=== PATIENT | female | born 1955 | race Caucasian/White ===

== ENCOUNTER 2020-01-31 00:19 | Day surgery (SDC) | payer BC, SELFPAY ==
[2020-01-29 11:23] VITALS: BMI 34.3
--- NOTE | 2020-01-30 16:45 | WPDANESEPP ---
Anes - Eval Pre Procedure Procedure: Operation Date: 01/31/20 09:30 Proposed Procedures p Right Breast Modified Radical Mastectomy - Phil Avila MD Date/Time: 01/30/20 16:45 Pre Op Diagnosis: Right Breast Ca Patient Data Age: 64 Gender: F Height: 4 ft 11 in Weight: 77.11 kg Allergies Allergy/AdvReac Type Severity Reaction Status Date / Time clarithromycin AdvReac VOMITING, Verified 01/29/20 11:30 DIARRHEA tramadol AdvReac HALLUCINATI Verified 01/29/20 11:30 ONS Home Medications Medication Instructions Recorded Confirmed Type B-complex with vitamin C 1 tablet PO DAILY 12/09/19 01/29/20 History cholecalciferol (vitamin D3) 25 1,000 unit PO DAILY 12/09/19 01/29/20 History mcg (1,000 unit) capsule magnesium 250 mg tablet 250 mg PO DAILY 12/09/19 01/29/20 History multivitamin-iron 9 mg-folic acid 1 tablet PO DAILY 12/09/19 01/29/20 History 200 mcg-calcium and minerals tablet Patient hx anesthesia problems: none Family hx anesthesia problems: none PMFSH Past Medical History Medical History (Updated 01/30/20 @ 16:46 by Jake Poole CRNA) Breast cancer metastasized to axillary lymph node Breast mass Bronchitis Surgical History Surgical History History of tonsillectomy Family History Family History Father Esophageal cancer Mother Heart disease Diabetes mellitus Hypertension Sibling Diabetes mellitus Esophageal cancer Lung cancer Social History Social History Smoking status: Never smoker Second hand tobacco smoke exposure: No Alcohol intake: never Substance use: never Substance use type: does not use Gender identity (if verbalized by the patient): Female Exam Day of Procedure 01/30/20 16:45
--- NOTE | 2020-01-30 16:58 | PM.IMHP ---
H&P: HPI History of Present Illness Chief complaint: Right Breast Ca Narrative: Tessa Hilton is a 64 year old female whom I saw in the office initially on December 15. She had a 4 year history of a right breast mass that had gotten larger and developed ulceration. It it started about pea-sized and increased in size. She started to get a 2nd wound and thought she ought to have this evaluated. At that examination she was noted to have a grossly obvious large ulcerated right breast cancer. The ulcer was 5 x 7 cm. There was gross adenopathy in the right axilla. I did a needle core biopsy of the axillary mass. This showed metastatic breast cancer. She is otherwise healthy and is taken to surgery now for right modified radical mastectomy. She has not had mammogram or ultrasound due to the gross disease. Review of Systems Review of Systems: All systems reviewed & are unremarkable except as noted in HPI and below Constitutional: Constitutional: Denies headache(s) ENT: Denies headache(s) Cardiovascular: Cardiovascular: Denies chest pain and Denies dyspnea Respiratory: Respiratory: Denies cough and Denies dyspnea Gastrointestinal: Gastrointestinal: Denies bloating, Denies constipation and Denies nausea Neurologic: Denies confusion and Denies headache(s) Psychiatric: Psychiatric: Denies confusion PMFSH Past Medical History Medical History Breast cancer metastasized to axillary lymph node Breast mass Bronchitis Surgical History Surgical History History of tonsillectomy Family History Family History Father Esophageal cancer Mother Heart disease Diabetes mellitus Hypertension Sibling Diabetes mellitus Esophageal cancer Lung cancer Social History Social History Smoking status: Never smoker Second hand tobacco smoke exposure: No Alcohol intake: never Substance use: never Substance use type: does not use Gender identity (if verbalized by the patient): Female Meds Home Medications and Allergies Home Medications Medication Instructions Recorded Confirmed Type B-complex with vitamin C 1 tablet PO DAILY 12/09/19 01/31/20 History cholecalciferol (vitamin D3) 25 1,000 unit PO DAILY 12/09/19 01/31/20 History mcg (1,000 unit) capsule magnesium 250 mg tablet 250 mg PO DAILY 12/09/19 01/31/20 History multivitamin-iron 9 mg-folic acid 1 tablet PO DAILY 12/09/19 01/31/20 History 200 mcg-calcium and minerals tablet Allergies Allergy/AdvReac Type Severity Reaction Status Date / Time clarithromycin AdvReac VOMITING, Verified 01/29/20 11:30 DIARRHEA tramadol AdvReac HALLUCINATI Verified 01/29/20 11:30 ONS Exam Const: General: comfortable, no acute distress, alert and awake HENMT: Head: normocephalic and atraumatic Mouth: Yes Normal oral and palatal mucosa present Eyes: Conjunctivae: conjunctivae normal Pupils: Equal, round and reactive pupils present EOM: EOMs intact bilaterally Neck: Neck: normal visual inspection, no lymphadenopathy and nontender Chest: Breast/axilla inspection: abnormal inspection of the axilla ( Right axillary mass) and abnormal inspection of the breast ( Right breast with large ulcerated upper breast mass.) Breast/axilla palpation: abnormal palpation of the axilla ( right axillary mass biopsy proven to be metastatic breast cancer) and abnormal palpation of the breast ( large ulcerated firm hard upper breast mass) Other: left breast exam is negative left axilla is negative Resp: Effort & Inspection: normal respiratory effort Auscultation: clear to auscultation bilaterally Cardio: Rate: regular rate Rhythm: regular rhythm Heart sounds: no gallops, no murmurs and no rubs GI: Inspection: non-distended GI Palp: Yes Soft to palpa
[2020-01-31] VITALS (16 sets, daily range): BP systolic 97–146; BP diastolic 50–97; PULSE 69–88; RESP 10–20; TEMP 36–36.8; O2SAT 93–100
--- NOTE | 2020-01-31 07:57 | WPDANESEPPF ---
Anes - Initial Pre Proc Eval Procedure: Operation Date: 01/31/20 09:30 Proposed Procedures p Right Breast Modified Radical Mastectomy - Phil Avila MD Date/Time: 01/31/20 07:57 Surgeon: Phil Avila MD Pre Op Diagnosis: Right Breast Ca Patient Data Age: 64 Gender: F Height: 1.5 m Weight: 77.11 kg Allergies Allergy/AdvReac Type Severity Reaction Status Date / Time clarithromycin AdvReac VOMITING, Verified 01/29/20 11:30 DIARRHEA tramadol AdvReac HALLUCINATI Verified 01/29/20 11:30 ONS Home Medications Medication Instructions Recorded Confirmed Type B-complex with vitamin C 1 tablet PO DAILY 12/09/19 01/31/20 History cholecalciferol (vitamin D3) 25 1,000 unit PO DAILY 12/09/19 01/31/20 History mcg (1,000 unit) capsule magnesium 250 mg tablet 250 mg PO DAILY 12/09/19 01/31/20 History multivitamin-iron 9 mg-folic acid 1 tablet PO DAILY 12/09/19 01/31/20 History 200 mcg-calcium and minerals tablet Patient hx anesthesia problems: none Family hx anesthesia problems: none PMFSH Past Medical History Medical History Breast cancer metastasized to axillary lymph node Breast mass Bronchitis Surgical History Surgical History History of tonsillectomy Family History Family History Father Esophageal cancer Mother Heart disease Diabetes mellitus Hypertension Sibling Diabetes mellitus Esophageal cancer Lung cancer Social History Social History Smoking status: Never smoker Second hand tobacco smoke exposure: No Alcohol intake: never Substance use: never Substance use type: does not use Gender identity (if verbalized by the patient): Female Anes - Eval Final PreProcedure Day of Procedure 01/31/20 07:57 Patient weight: obese Heart: regular rate and rhythm Lungs: clear to auscultation and normal air movement Airway: Mallampati scale class II Neurological: alert and oriented Last oral intake: >/= 8 hours ASA classification: III Emergent: no Anesthetic plan: proceed Anesthesia type and monitoring: general LMA and ETT Informed Consent: The patient's anesthetic plan and its attendant risks and benefits were discussed with the patient/family/POA. Questions were solicited and answers provided to the satisfaction of the patient/family/POA.
[2020-01-31] MEDS: LACTATED RINGERS 1,000 ML 30 ML IV CONT ×2 (08:09→13:03)
--- NOTE | 2020-01-31 09:25 | WPDHPUPDATE1 ---
History and Physical Update Update Date/Time: 01/31/20 09:25 History and Physical has been reviewed, including an updated exam of the patient. There are NO changes in the patient's condition. Risks, benefits, and alternatives have been discussed and questions answered. Patient agrees to proceed with procedure.
[2020-01-31] MEDS: ceFAZolin 2 GM/D5W 50 ML 2 GM/50 ML BAG IVPB (09:33)
--- NOTE | 2020-01-31 10:28 | SUR.OPER ---
1 amp fentanyl checked out of pyxsis for this pt and given to dorita dinero at 1021
--- NOTE | 2020-01-31 10:49 | SUR.OPER ---
checked out 2 more amps fentanyl for this pt and given to dorita gardner heat pump installer 1048
--- NOTE | 2020-01-31 12:47 | SUR.OPER ---
EBL:150cc
--- NOTE | 2020-01-31 13:27 | PM.PROC ---
Procedure Note - Detailed Date of procedure: 01/31/20 Pre-op diagnosis: Right Breast Ca Locally advanced right breast cancer with clinically positive right axillary metastasis Post-op diagnosis: same Procedure performed: For right modified radical mastectomy Description of procedure: The patient was taken to surgery and induced into general anesthesia. The right breast was prepped and draped as was the right axilla and right arm. The right arm was mobile and prepped into the field. There was an ulcerating mass in the upper aspect of the right breast predominantly in the upper outer quadrant. A transversely oriented ellipse was drawn on the skin such that the entire ulcerated mass would be taken with the breast tissue. Approximately 2 cm margin of skin went with the ulcerated mass. After the ellipse was drawn on the skin, incision for the upper flap was made. Face-lift retractors were used and then the superior flap was created. Superior flap was dissected free from the breast tissue up to the right clavicle. Medially it was dissected over to the lateral border of the sternum. Laterally dissected to the lateral border the pectoralis major muscle. Then the 1st pastry assistant and I changed sides. Incision for the inferior flap was made. Face-lift retractors were again used and the inferior flap was created with the cautery. This was dissected down to the insertion of the rectus muscle. Medially this was divided over to the lateral border of the sternum. Laterally we dissected down until we found the superior margin of the latissimus Anderson muscle. Cautery was used for hemostasis. The 1st pastry assistant and I again changed places. Starting in the upper outer quadrant, the breast was removed from the pectoralis major muscle taking the pectoralis major fascia with the breast tissue. No progression of the tumor beyond the pectoralis major fascia was noted. The breast was continued to be removed from the chest wall below the pectoralis major muscle and on laterally over to the serratus anterior muscle. We then exposed the lateral border the pectoralis major muscle and started the right axillary dissection. Retraction of the pectoralis major was carried out and then dissection of the superficial fascia overlying the axillary content was divided. Lymphatic and vascular structures were clipped or cauterized. We then encountered the pectoralis minor muscle. This fascia was also divided so that we could proceed under the pectoralis minor. Careful dissection was carried out. Clamps and ties of 3 0 Vicryl were used for lymphatic and vascular structures. Clips and cautery were used as well. Slowly we dissected down and removed the axillary lymphatic tissue from beneath the pectoralis minor muscle constituting a level 2 dissection. Clinically palpable nodes were noted in the area. These were all taken with the specimen. I then went to the inferior and lateral aspects of the axilla and started dissection in these directions. This progressed up the latissimus Anderson muscle and down from the area just beneath the right axillary vein. The axillary vein was seen but we tried to keep the dissection inferior to that. We continued dissecting in a posterior direction again using clamps and ties of 3 0 Vicryl. Smaller lymphovascular structures were clipped or cauterized. Eventually we came to the thoracodorsal nerve, artery, and vein. These were carefully preserved. The long thoracic nerve was found and carefully preserved. We dissected the axillary tissue away from the thoracodorsal nerve artery and vein inferiorly. Continued dissection was carried out from the lateral apsect and also from the posterior aspect. Most of this was able to be done with the cautery. Finally, we freed the axillary tissue from the serratus anterior and latissimus Anderson muscle. The axillary contents and right breast were then completely freed. They were sent to pathology labeled right breast and axillary d
[2020-01-31] MEDS: KETOROLAC 30 MG/ML VIAL (*BKC) IV PUSH (14:00)
[2020-01-31] MEDS: ONDANSETRON INJ 4 MG/2 ML VIAL IV PUSH (14:01)
[2020-01-31] MEDS: HALOPERIDOL LACTATE 5 MG/ML VIAL 1 MG IV PUSH (14:57)
--- NOTE | 2020-01-31 15:06 | SUR.PHASEI ---
1500 SPOKE WITH PTS BROTHREYNALDO ADAMS PER PHONE- UPDATE & ROOM NUMBER GIVEN.
--- NOTE | 2020-01-31 15:20 | PC.NURSE ---
This patient, Tessa Hilton, was admitted to -. Patient/family oriented to hospital policies and general routines including ID bracelet, bed and alarms, visiting hours, pain management, procedures, bathroom and other care routines, personal items, smoking policy, room service/diet, and visiting hours. Valuables list has been completed. Information on how to activate the Rapid Response Team has been discussed. Patient/Family are encouraged to report perceived risks to care and to ask questions if they do not understand what they are told or what they should do.
[2020-01-31] MEDS: LACTATED RINGERS 1,000 ML 100 ML IV CONT (16:02)
[2020-01-31] MEDS: SENNA/DOCUSATE SODIUM TABLET 2 TAB PO (20:37)
[2020-01-31] MEDS: ENOXAPARIN 30 MG/0.3 ML SYRINGE SUB-Q (20:37)
[2020-02-01 02:00] VITALS: BP 110/49; PULSE 78; RESP 20; TEMP 36.7; O2SAT 97
[2020-02-01 06:00] VITALS: BP 108/56; PULSE 80; RESP 20; TEMP 36.9; O2SAT 97
[2020-02-01 07:09] LABS: Hematocrit 36.8 % (37.0-47.0); Hemoglobin 12.3 g/dL (12.0-15.0); Mean Corpuscular HGB Conc 33.4 g/dl (32-36); Mean Corpuscular Hemoglobin 30.4 pg (26-34); Mean Corpuscular Volume 91.1 fl (80-100); Mean Platelet Volume 10.7 fl (7.4-10.4); Platelet Count Result 253 k/mm3 (150-375); Red Blood Count 4.04 M/mm3 (4.2-5.4); Red Cell Distribution Width 12.3 % (11.5-14.5)
[2020-02-01 07:17] LABS: Blood Urea Nitrogen 18 mg/dL (7-17); Calcium 9.3 mg/dL (8.4-10.2); Carbon Dioxide 28 mmol/L (22-30); Chloride 101 mmol/L (98-107); Estimated Glomerular Filt Rate 56; Glucose 97 mg/dL (65-105); Potassium 4.1 mmol/L (3.4-5.0); Sodium 137 mmol/L (137-145)
[2020-02-01 10:00] VITALS: BP 110/57; PULSE 81; RESP 16; TEMP 36.7; O2SAT 100
[2020-02-01] MEDS: IBUPROFEN 400 MG TABLET PO (10:08)
[2020-02-01] MEDS: ENOXAPARIN 30 MG/0.3 ML SYRINGE SUB-Q (10:09)
[2020-02-01] MEDS: CHOLECALCIFEROL 1,000 UNIT TABLET 1000 UNITS PO (10:09)
[2020-02-01] MEDS: THERAPEUTIC MULTIVITAMINS/MINERALS TAB (*BKC) 1 TABLET PO (10:10)
[2020-02-01] MEDS: VITAMIN B COMPLEX/VIT C CAPSULE 1 EACH PO (10:10)
[2020-02-01 14:05] VITALS: BP 114/62; PULSE 98; RESP 18; TEMP 36.7; O2SAT 99
--- NOTE | 2020-02-01 14:50 | PM.DS ---
DS: Diagnosis Admitting Diagnosis Admitting Diagnosis: Malignant neoplasm of unspecified site of unspecified female breast Discharge Diagnosis (1) Breast cancer metastasized to axillary lymph node: Onset Date: Unknown Qualifiers: Laterality: right Qualified Code(s): C50.911 - Malignant neoplasm of unspecified site of right female breast; C77.3 - Secondary and unspecified malignant neoplasm of axilla and upper limb lymph nodes Code(s): C50.919 - Malignant neoplasm of unspecified site of unspecified female breast; C77.3 - Secondary and unspecified malignant neoplasm of axilla and upper limb lymph nodes Status: Chronic Assessment and Plan: Patient will follow postop discharge instructions. She will be followed up in the office in 1 week. DS: Summary Hospital Course Reason for hospitalization: Postop care after right-sided modified radical mastectomy Hospital Course: Patient uneventful hospital course. She stayed overnight after her modified radical mastectomy on the right. She had some nausea and pain the afternoon of the procedure. However, the following morning (this morning) she is doing well tolerated a diet last evening and today. She is very interested in going home. She is not requiring much pain medicine. She has good questions and she has been taught how to take care of her KAY drains. Status at Discharge Cognitive/behavioral status at discharge: [place] well back to baseline. Functional status at discharge: independent ambulation Overall status at discharge: patient is back to baseline Time Spent with Patient Time attestation: Total time spent providing and/or coordinating discharge services: Time spent: Less than 30 minutes Exam Narrative: Exam Narrative: Patient is doing well postop day 6 1. After right modified radical mastectomy. She is moving her right arm well but it is in a sling. KAY drains are draining serosanguineous fluid. She knows how to empty them. Lungs are clear No peripheral edema noted. Const: General: no acute distress DS: Data Data Completed and Pending Pending studies at discharge: Pending at discharge 01/31/20 11:16 Surgical [PTH] Routine Labs on day of discharge: Labs from last 24 hours 02/01/20 02/01/20 06:07 06:07 WBC 9.0 RBC 4.04 L Hgb 12.3 Hct 36.8 L MCV 91.1 MCH 30.4 MCHC 33.4 RDW 12.3 Plt Count 253 MPV 10.7 H Sodium 137 Potassium 4.1 Chloride 101 Carbon Dioxide 28 BUN 18 H Creatinine 1.00 Estim Creat Clear Calc Not Reportable Estimated GFR 56 L Glucose 97 Calcium 9.3 Discharge Plan Discharge Patient Disposition: Home, Self-Care Discharge Instructions: Discharge Instruction Sheet for Mastectomy/ Debary Node Biopsy (Possible Axillary Node Dissection) Patients Dr. Avila, Dr. Bethea, [facility] [address] [facility] [address] [place]. [address] 1.) Keep wound clean and dry. If drains are present, will need to sponge bathe until drain(s) are removed. This drain will be removed during your follow up visit. 2.) No vigorous activity or carrying with affected arm. May use arm to comb hair, eat, write, etc. 3.) Do not apply creams or ointments unless directed to do so by your surgeon. 4.) Ambulate (walk) for exercise at least 3 times per day. 5.) Contact your surgeon?s office if you have excessive and persistent pain, swelling, bleeding, or drainage through the dressing, redness or red streaks around the wound, heat or warmth at the site of the incision, or fever of more than 101 degrees. 6.) Resume all home medications. Patient to be given pain medication prescription prior to discharge if needed. 7.) Please be aware that the surgeon will likely inject a ?blue dye? to identify the sentinel lymph node during the procedure. This dye may turn your urine blue or green for 24 hours and skin a liya
== END 2020-02-01 15:50 | disposition home or self-care (01) ==
LOC: ANHSURGERY 07:56 → ANH3MEDSUR 15:36
PROVIDERS: PCP Family Medicine; Visit Provider Surgery
PROC: (CPT 19307; principal; 2020-01-31 09:30)
DX: C50.411 Malignant neoplasm of upper-outer quadrant of right female breast (principal); C77.3 Secondary and unspecified malignant neoplasm of axilla and upper limb lymph nodes; E66.9 Obesity, unspecified; Z68.34 Body mass index [BMI] 34.0-34.9, adult
CPT/HCPCS: 19307; 36415; 80048; 85027; 86850; 86900; 86901; 88307; 88309; 88342; A4565; A9270; C1713; J0690; J1100; J1630; J1650; J1885; J2001; J2250; J2370; J2405; J2704; J3010; J7120

== ENCOUNTER 2020-03-02 10:14 | Outpatient (CLI) | payer BC, SELFPAY ==
[2020-03-02 10:24] LABS: Basophils Percent Auto 0.4 % (0.2-1.2); Eosinophils Absolute Auto 0.3 K/mm3 (0-0.3); Eosinophils Percent Auto 5.5 % (0-4.4); Hematocrit 43.7 % (37.0-47.0); Hemoglobin 14.7 g/dL (12.0-15.0); Immature Granulocyte Absolute 0.01 K/mm3 (0.00-0.031); Immature Granulocyte Percent A 0.2 % (0-0.5); Lymphocytes Absolute Auto 1.32 K/mm3 (0.9-3.2); Lymphocytes Percent Auto 24.1 % (18.3-44.2); Mean Corpuscular HGB Conc 33.6 g/dl (32-36); Mean Corpuscular Hemoglobin 30.6 pg (26-34); Mean Corpuscular Volume 90.9 fl (80-100); Mean Platelet Volume 10.5 fl (7.4-10.4); Monocytes Absolute Auto 0.5 K/mm3 (0.1-0.6); Monocytes Percent Auto 9.5 % (2.6-8.5); Neutrophils Absolute Auto 3.3 K/mm3 (1.3-6.7); Neutrophils Percent Auto 60.3 % (45.5-73.1); Platelet Count Result 271 k/mm3 (150-375); Red Blood Count 4.81 M/mm3 (4.2-5.4); Red Cell Distribution Width 11.9 % (11.5-14.5); White Blood Count 5.5 K/mm3 (4.5-10.0)
[2020-03-02 13:41] LABS: Alanine Aminotransferase 36 U/L (4-35); Albumin Level 4.5 g/dL (3.5-5.1); Alkaline Phosphatase 90 U/L (38-126); Aspartate Amino Transferase 33 U/L (14-36); Bilirubin,Total 0.5 mg/dL (0.2-1.3); Blood Urea Nitrogen 20 mg/dL (7-17); Calcium 9.6 mg/dL (8.4-10.2); Carbon Dioxide 25 mmol/L (22-30); Chloride 105 mmol/L (98-107); Estimated Glomerular Filt Rate 56; Glucose 93 mg/dL (65-105); Potassium 4.7 mmol/L (3.4-5.0); Sodium 138 mmol/L (137-145)
[2020-03-05 06:44] LABS: CA 27.29 18 U/mL (<38)
== END 2020-03-02 10:15 | disposition home or self-care (01) ==
LOC: ANHLAB 10:15
PROVIDERS: PCP Family Medicine; Visit Provider Internal Medicine Hematology & Oncology
DX: C50.411 Malignant neoplasm of upper-outer quadrant of right female breast (principal); Z17.0 Estrogen receptor positive status [ER+]
CPT/HCPCS: 36415; 80053; 85025; 86300

== ENCOUNTER 2020-03-10 07:35 | Outpatient (CLI) | payer BC, SELFPAY ==
--- NOTE | ~2020-03-10 | MR_ITS ---
EXAMINATION: MR brain/brain stem wo/w con DATE: 03/10/2020 09:11 INDICATION: Malignant right breast cancer TECHNIQUE: Magnetic resonance imaging (MRI) of the brain and brainstem was performed without and with 15 mL Multihance intravenous contrast. Sequences included sagittal and axial T1-weighted SE, axial d iffusion-weighted FS SE, axial T2*-weighted GRE, axial T2-weighted FLAIR, and axial T2-weighted FSE. Postcontrast axial and coronal T1-weighted SE was obtained. Apparent diffusion coefficient (ADC) maps were created. COMPARISON: None. FINDINGS: There are no areas of restricted diffusion to suggest acute infarction. No intracranial hemorrhage or abnormal intracranial mass lesion. There are no intraparenchymal signal abnormalities seen on the ot her pulse sequences. The ventricles are symmetric and normal in size. There are no abnormal extra-axi al fluid collections. Flow voids are seen in the cerebral arteries on the T2-weighted sequences consi stent with their expected patency. Mucous retention cyst in the left maxillary sinus. Visualized orbi ts and soft tissues are unremarkable. There are no areas of abnormal enhancement on the post contrast images. IMPRESSION: 1. Normal brain. No evident metastatic disease or acute intracranial process. Reviewed, dictated and finalized at location A.
--- NOTE | ~2020-03-10 | MM_ITS ---
EXAMINATION: MM screening dianelys LT w nneka HISTORY: Screening mammogram. Malignant neoplasm of the right breast. TECHNIQUE: Craniocaudal and mediolateral oblique 3-D tomosynthesis images were obtained and synthetic 2-D images were generated. CAD analysis was submitted and interpreted. COMPARISON: No prior mammogram is available for comparison at this institution. BREAST PARENCHYMAL COMPOSITION: There are scattered areas of fibroglandular density. FINDINGS: There is a 2.3 cm mass in the upper outer quadrant of the left breast. There is an 8 mm mas s in the upper inner quadrant of the left breast posteriorly. There are benign calcifications. IMPRESSION: 1. Multiple left breast masses, largest measuring 2.3 cm in the upper outer quadrant. 2. Additional mammographic views and possible breast ultrasound are recommended. BI-RADS Category 0: Incomplete: Needs additional imaging evaluation. Reviewed, dictated and finalized at location A. IMPRESSION: 1. Multiple left breast masses, largest measuring 2.3 cm in the upper outer tabatha drant. 2. Additional mammographic views and possible breast ultrasound are recommended . BI-RADS Category 0: Incomplete: Needs additional imaging evaluation.
== END 2020-03-10 07:36 | disposition home or self-care (01) ==
PROVIDERS: PCP Family Medicine; Visit Provider Internal Medicine Hematology & Oncology
DX: C50.411 Malignant neoplasm of upper-outer quadrant of right female breast (principal); Z17.0 Estrogen receptor positive status [ER+]; Z12.31 Encounter for screening mammogram for malignant neoplasm of breast; R92.8 Other abnormal and inconclusive findings on diagnostic imaging of breast
CPT/HCPCS: 70553; 77063; 77067; A9577

== ENCOUNTER 2020-03-13 12:17 | Outpatient (CLI) | payer BC, SELFPAY ==
--- NOTE | ~2020-03-13 | CT_ITS ---
EXAMINATION: CT chest abdomen pelvis w con DATE: 03/13/2020 13:16 INDICATION: Malignant neoplasm of the upper outer quadrant of right breast. TECHNIQUE: Computed tomography (CT) of the chest, abdomen, and pelvis was performed with 100 mL Omnip aque 350 intravenous contrast. Automated exposure control and iterative reconstruction technique were employed. The dose-length product was 791.52 mGy-cm. COMPARISON: None FINDINGS: CHEST CT: There is mild scarring at the lung apices. There are greater than 20 scattered nodules in the lungs m easuring up to 12 mm. No pleural effusion. There is an 8 mm nodule in the thyroid, likely not clinica lly significant. There is an aberrant right subclavian artery. The heart size is normal. No pericardi al effusion. There are changes of right mastectomy. There are a few scattered masses at the skin in t he anterior and posterior thorax measuring up to 2.2 cm in left anterior upper chest. There is mild t horacic spondylosis. ABDOMEN/PELVIS CT: The liver, gallbladder, spleen, pancreas, adrenal glands, and kidneys are normal. There are multiple fibroids in uterus measuring up to 4.9 cm. There are no dilated loops of bowel. The appendix is dawson l. There are no pathologically enlarged lymph nodes. There is no free intraperitoneal fluid. There is mild lumbar spondylosis. IMPRESSION: 1. Pulmonary nodules, consistent with metastatic disease. 2. Multiple skin masses, which may be benign disease such as neurofibromatosis. Correlate with physic al exam. Reviewed, dictated and finalized at location A. IMPRESSION: 1. Pulmonary nodules, consistent with metastatic disease. 2. Multiple skin masses, which may be benign disease such as neurofibromatosis. Correlate with physical exam.
== END 2020-03-13 12:18 | disposition home or self-care (01) ==
LOC: ANHIMG 12:20
PROVIDERS: PCP Family Medicine; Visit Provider Internal Medicine Hematology & Oncology
DX: C50.411 Malignant neoplasm of upper-outer quadrant of right female breast (principal); Z17.0 Estrogen receptor positive status [ER+]; R91.8 Other nonspecific abnormal finding of lung field; R22.9 Localized swelling, mass and lump, unspecified
CPT/HCPCS: 71260; 74177; Q9967

== ENCOUNTER 2020-03-20 08:25 | Outpatient (CLI) | payer BC, SELFPAY ==
--- NOTE | ~2020-03-20 | MMUS_ITS ---
EXAMINATION: MM diagnostic mammo unilat LT, US breast LT complete HISTORY: Left breast masses on screening mammogram, history of right mastectomy TECHNIQUE: Additional 3-D tomosynthesis images of the left breast were performed and synthetic 2-D im ages were generated. CAD analysis was submitted and interpreted. High resolution limited left breast ultrasound was performed. COMPARISON: 03/10/2020 FINDINGS: MAMMOGRAPHIC FINDINGS: There are least three persistent left breast masses, two of which are visibly associated with the ski n. The third persistent mass is present in the upper inner breast and although not visible on the ski n, projects in the skin on the tomosynthesis images. No suspicious cystic or solid mass is identified . ULTRASOUND: There are hypoechoic masses of the left breast involving the skin corresponding to the mammographic f indings in question, all of which have the appearance of sebaceous cysts. No suspicious cystic or roldan id mass is identified. IMPRESSION: 1. Multiple sebaceous cysts of the left breast without mammographic or sonographic evidence of malign dary. 2. Recommend routine screening mammography in one year. BI-RADS Category 2: Benign finding(s). Reviewed, dictated and finalized at location A. IMPRESSION: 1. Multiple sebaceous cysts of the left breast without mammographic or sonograp hic evidence of malignancy. 2. Recommend routine screening mammography in one year. BI-RADS Category 2: Benign finding(s).
== END 2020-03-20 08:26 | disposition home or self-care (01) ==
LOC: ANHIMG 08:26
PROVIDERS: PCP Family Medicine; Visit Provider Surgery
DX: N60.82 Other benign mammary dysplasias of left breast (principal); Z90.11 Acquired absence of right breast and nipple
CPT/HCPCS: 76641; 77065

== ENCOUNTER 2020-03-24 09:27 | Outpatient (CLI) | payer BC, SELFPAY ==
--- NOTE | ~2020-03-24 | PE_ITS ---
EXAMINATION: PET skull to mid thigh DATE: 03/24/2020 11:34 INDICATION: Metastatic breast cancer, history of right mastectomy TECHNIQUE: Blood glucose level was 84 mg/dL. 8.375 mCi of 18-fluorodeoxyglucose (18-FDG) was administ ered i.v. Low dose computed tomography (CT) images were acquired from the base of the brain to the pr oximal thighs for attenuation correction and anatomic localization. Positron emission tomography (PET ) images were acquired in the same distribution beginning 62 minutes after injection. The dose-length product (DLP) was 724.71 mGy-cm. COMPARISON: CT, 03/13/2020 FINDINGS: Head/neck: FDG uptake in the oral cavity without suspicious CT correlate is likely physiologic. There is a polyp or mucous retention cyst in the left maxillary sinus. Chest: There are changes of right mastectomy and right axillary lymph node dissection. Again seen are greater than 20 pulmonary nodules in the lungs. The largest measures 12 mm in the right lower lobe a nd demonstrates abnormal FDG uptake with an SUV max of 3.4. FDG uptake is seen in the larger nodules with smaller nodules being too small for reliable FDG assessment. There are right subpectoral lymph n odes which are normal in size but demonstrate abnormal FDG uptake with an SUV max of 9.3. The heart s ize is normal. There is no pleural effusion or pneumothorax. There are multiple cutaneous nodules in the skin of the left breast which were demonstrated to be sebaceous cysts on recent ultrasound. Abdomen/pelvis/proximal thighs: No abnormal FDG uptake is identified. Physiologic FDG activity is pre sent in the bowel and urinary tract. The liver, spleen, pancreas, gallbladder, and adrenal glands are normal. The kidneys are unremarkable. There are multiple uterine fibroids which measure up to 4.9 cm . No pathologically enlarged abdominal or pelvic lymph nodes are identified. There is no free intrape ritoneal gas or evidence of bowel obstruction. Musculoskeletal: There is a subtle sclerotic lesion in the posterior aspect of the left ischium with abnormal FDG uptake and SUV max of 11.4. IMPRESSION: 1. Multiple pulmonary nodules, right subpectoral lymph nodes, and sclerotic lesion of the left ischiu m all with abnormal FDG uptake and consistent with metastatic disease. Reviewed, dictated and finalized at location A. IMPRESSION: 1. Multiple pulmonary nodules, right subpectoral lymph nodes, and sclerotic les ion of the left ischium all with abnormal FDG uptake and consistent with metast atic disease.
[2020-03-24 10:04] LABS: Glucose Point of Care 84 (65-105)
== END 2020-03-24 09:28 | disposition home or self-care (01) ==
PROVIDERS: PCP Family Medicine; Visit Provider Internal Medicine Hematology & Oncology
DX: C50.919 Malignant neoplasm of unspecified site of unspecified female breast (principal); R91.8 Other nonspecific abnormal finding of lung field; M89.8X8 Other specified disorders of bone, other site
CPT/HCPCS: 78815; A9552

== ENCOUNTER 2020-07-31 08:35 | Outpatient (CLI) | payer BC, SELFPAY ==
--- NOTE | ~2020-07-31 | NM_ITS ---
EXAMINATION: NM bone scan whole body DATE: 07/31/2020 13:05 INDICATION: Right breast cancer TECHNIQUE: 21 mCi Tc-99m HDP was administered intravenously. Delayed whole-body scintigrams were obt ained. COMPARISON: CT chest, abdomen and pelvis dated 07/31/2020 FINDINGS: Increased uptake at the left ischial/inferior pubic ramus with corresponding sclerotic bone lesion on CT which is also FDG avid on prior PET study consistent with metastatic disease. Additional small fo cus of increased uptake at the right side of the mandible likely related to dental disease with peria pical lucency at the posterior most right mandibular molar on prior PET/CT. Otherwise physiologic dis tribution of bone uptake with no other suspicious bone lesions identified. IMPRESSION: 1. Increased uptake at the right atrium/inferior pubic ramus corresponding to a sclerotic lesion on p rior CT consistent with metastatic disease. 2. Small focus of mild increased uptake at the right side of the mandible likely related to dental di sease. Reviewed, dictated and finalized at location B. IMPRESSION: 1. Increased uptake at the right atrium/inferior pubic ramus corresponding to a sclerotic lesion on prior CT consistent with metastatic disease. 2. Small focus of mild increased uptake at the right side of the mandible likel y related to dental disease.
--- NOTE | ~2020-07-31 | CT_ITS ---
EXAMINATION: CT chest abdomen pelvis w con DATE: 07/31/2020 15:20 CDT INDICATION: Breast cancer. Metastatic disease. TECHNIQUE: Computed tomography (CT) of the chest, abdomen, and pelvis was performed with 100 cc Omnip aque 350 intravenous contrast. The dose-length product was 943.28 mGy-cm. Automated exposure control and iterative reconstruction technique were employed. COMPARISON: CT dated 03/13/2020 FINDINGS: CHEST CT: Stable skin nodules located in the subcutaneous tissues left upper chest measuring up to 2.0 cm. Stat us post right mastectomy. No significant pleural or pericardial effusion. No thoracic lymphadenopathy . There is scarring and parenchymal: Consolidation of the right upper lobe, likely sequela of radiati on therapy. Infection less favored although not excluded. Correlate with radiation port site. Thoraci c aorta unremarkable without aneurysm or dissection. There is an aberrant right subclavian artery. He art size is normal. There is a 9 mm right lower lobe nodule, perifacial in the superior segment. This has diminished in size compared with prior examination when it measured 12 mm. There is a some solid 6 mm nodule right lower lobe, image 54, decreased compared with prior study when it measured 9 mm. T here is an additional subsolid nodule, image 56, also decreased in size. There has been decreased num steffen and size of all additional pulmonary nodules in both lungs, for instance in the left lower lobe, image 63, nodule measures 5 mm compared with 9 mm greatest axial dimension no endobronchial lesions. ABDOMEN/PELVIS CT: The liver, spleen, pancreas, adrenal glands and kidneys are unremarkable. Gallbladder is present. Mil d atherosclerosis without aneurysm. Enlarged fibroid uterus. Nonobstructive bowel gas pattern. No randa e air or free fluid. Mild lumbar spondylosis. Sclerotic lesion of the left ischium is compatible with metastatic disease. No other sites of sclerosis. IMPRESSION: 1. Improvement in number and size of bilateral pulmonary nodules, consistent with interval response t o therapy. Parenchymal consolidation/pleural thickening right apex, likely post radiation therapy simon nge. 2: Sclerosis left ischium, compatible with metastatic disease. 3: Space multiple skin masses unchanged. It is post right mastectomy. Reviewed, dictated and finalized at location A. IMPRESSION: 1. Improvement in number and size of bilateral pulmonary nodules, consistent wi th interval response to therapy. Parenchymal consolidation/pleural thickening r ight apex, likely post radiation therapy change. 2: Sclerosis left ischium, compatible with metastatic disease. 3: Space multiple skin masses unchanged. It is post right mastectomy.
== END 2020-07-31 08:36 | disposition home or self-care (01) ==
PROVIDERS: PCP Family Medicine; Visit Provider Internal Medicine Hematology & Oncology
DX: C50.411 Malignant neoplasm of upper-outer quadrant of right female breast (principal); Z17.0 Estrogen receptor positive status [ER+]
CPT/HCPCS: 36415; 71260; 74177; 78306; 80053; 85025; 86300; A9561; Q9967

== ENCOUNTER 2020-11-13 09:30 | Outpatient (CLI) | payer BC, SELFPAY ==
--- NOTE | ~2020-11-13 | NM_ITS ---
EXAMINATION: NM bone scan whole body DATE: 11/13/2020 13:49 INDICATION: Malignant neoplasm of the upper outer quadrant of the right breast. TECHNIQUE: 23.6 mCi Tc-99m HDP was administered intravenously. Delayed whole-body scintigrams were o btained. COMPARISON: Bone scan dated 07/31/[address] dated 11/13/[address] chest, abdomen and pelvis dated 07/31/2020 . FINDINGS: No interval change in a region of increased uptake at the left ischium corresponding to sclerotic bon e lesion on prior CT consistent with metastatic disease. No other suspicious bone lesions identified. Asymmetric diffuse increased uptake of the right ribs on the anterior projection likely due to prior right mastectomy with decreased soft tissue attenuation. IMPRESSION: 1. No change in a region of increased uptake at the right ischium corresponding to a sclerotic bone l esion on prior CT consistent with metastatic disease. No other evident metastatic disease. Reviewed, dictated and finalized at location A. E TOP TILE SETTER IMPRESSION: 1. No change in a region of increased uptake at the right ischium corresponding to a sclerotic bone lesion on prior CT consistent with metastatic disease. No other evident metastatic disease.
--- NOTE | ~2020-11-13 | CT_ITS ---
EXAMINATION: CT diagnostic chest w con DATE: 11/13/2020 10:18 INDICATION: Malignant neoplasm of the upper outer quadrant of the right breast TECHNIQUE: Transaxial computed tomographic images of the chest were obtained after the administration of 75 cc of Omnipaque 350 intravenous contrast. The dose-length product (DLP) was 266.84 mGy-cm. Ite rative reconstruction was used. COMPARISON: 07/31/2020 FINDINGS: There are surgical changes of right mastectomy. Areas of anterior subpleural fibrosis in th e right hemithorax are consistent with radiation change. There is also scarring in the right lung ape x. There are multiple lung nodules consistent with treated metastatic disease. No new pulmonary nodul e is identified. The lungs are free of focal airspace opacities. There is no pleural effusion or pneu mothorax. There is aberrant origin of the right subclavian artery which courses behind the esophagus. No pathologically enlarged thoracic lymph nodes are identified. The heart size is normal. IMPRESSION: 1. Multiple stable pulmonary nodules, consistent with treated metastatic disease. No new pulmonary no dules identified. Reviewed, dictated and finalized at location A. DEND CLERK IMPRESSION: 1. Multiple stable pulmonary nodules, consistent with treated metastatic diseas e. No new pulmonary nodules identified.
== END 2020-11-13 09:31 | disposition home or self-care (01) ==
PROVIDERS: PCP Family Medicine; Visit Provider Internal Medicine Hematology & Oncology
DX: C50.411 Malignant neoplasm of upper-outer quadrant of right female breast (principal); Z17.0 Estrogen receptor positive status [ER+]; R92.8 Other abnormal and inconclusive findings on diagnostic imaging of breast
CPT/HCPCS: 36415; 71260; 78306; 80053; 85025; 86300; A9561; Q9967

== ENCOUNTER 2021-03-02 09:01 | Outpatient (CLI) | payer BC, SELFPAY ==
--- NOTE | ~2021-03-02 | CT_ITS ---
EXAMINATION: CT diagnostic chest w con DATE: 03/02/2021 09:34 INDICATION: Breast cancer TECHNIQUE: Computed tomography (CT) of the chest was performed without intravenous contrast. Addition al 3D reconstructions utilizing coronal maximum intensity projection (MIP) were performed. Automated exposure control and iterative reconstruction technique were employed. The dose-length product was 25 6.00 mGy-cm. COMPARISON: 11/13/2020 07/31/2020 and FINDINGS: Status post right mastectomy. Fine subpleural reticulation consistent with radiation fibrosis along t he anterior right upper and middle lobes. Continued interval improvement in a region of additional li kiet radiation pneumonitis/fibrosis at the right apex. Continued decrease in size of multiple small p ulmonary nodules and intrafissural lymph nodes scattered throughout both lungs consistent with respon se to treatment of prior metastatic disease. No new or enlarging pulmonary nodules. Heart size is nor mal. No pericardial or pleural effusion. Small sliding-type hiatal hernia. Thoracic aorta is normal i n caliber with no dissection. Normal variant retroesophageal aberrant right subclavian artery. No pat hologically enlarged thoracic lymphadenopathy. Visualized upper abdomen is unremarkable. No interval change in several scattered sclerotic bone lesions the smaller and more dense lesions in the spine li kiet representing bone islands with more subtle lesions in the sternum and manubrium suspicious for m etastatic disease. IMPRESSION: 1. Continued interval decrease in size of multiple small pulmonary nodules and intrafissural lymph no denisha consistent with response to treatment of metastatic disease. No new or enlarging nodules identifi ed. 2. A few unchanged subtle sclerotic lesions in the manubrium and sternum suspicious for treated metas tatic disease. No new or enlarging liver lesions identified. Reviewed, dictated and finalized at location A. IMPRESSION: 1. Continued interval decrease in size of multiple small pulmonary nodules and intrafissural lymph nodes consistent with response to treatment of metastatic d isease. No new or enlarging nodules identified. 2. A few unchanged subtle sclerotic lesions in the manubrium and sternum suspic ious for treated metastatic disease. No new or enlarging liver lesions identifi ed.
--- NOTE | ~2021-03-02 | NM_ITS ---
EXAMINATION: NM bone scan whole body DATE: 03/02/2021 12:48 INDICATION: Breast cancer TECHNIQUE: 26.8 mCi Tc-99m HDP was administered intravenously. Delayed whole-body scintigrams were o btained. COMPARISON: Bone scan dated 11/13/[address] dated 03/02/2021 FINDINGS: Asymmetric decreased soft tissue attenuation of the right-sided rib activity due to a prior right mas tectomy. No interval change in a region of mild increased uptake at the left ischial corresponding to a sclerotic bone lesion on an earlier CT dated 07/31/2020 consistent with metastatic disease. No new foci of abnormal bone uptake to suggest progressive metastatic disease. Specifically no abnormal upt pablo identified at the sternum at the site of a few additional subtle sclerotic lesions on CT . IMPRESSION: 1. Unchanged region of increased uptake at the right ischium corresponding to a sclerotic bone lesion on an earlier CT consistent with metastatic disease. No other new foci of abnormal uptake to suggest progression of metastatic disease. Reviewed, dictated and finalized at location A.
[2021-03-02 09:31] LABS: Estimated Glomerular Filt Rate 38
== END 2021-03-02 09:02 | disposition home or self-care (01) ==
PROVIDERS: PCP Family Medicine; Visit Provider Internal Medicine Hematology & Oncology
DX: C50.411 Malignant neoplasm of upper-outer quadrant of right female breast (principal); Z17.0 Estrogen receptor positive status [ER+]; M89.9 Disorder of bone, unspecified; R91.8 Other nonspecific abnormal finding of lung field
CPT/HCPCS: 71260; 78306; A9561; Q9967

== ENCOUNTER 2021-06-21 08:08 | Outpatient (CLI) | payer BC, SELFPAY ==
--- NOTE | ~2021-06-21 | NM_ITS ---
EXAMINATION: NM bone scan whole body DATE: 06/21/2021 12:53 INDICATION: Right breast cancer TECHNIQUE: 25.9 mCi Tc-99m HDP was administered intravenously. Delayed whole-body scintigrams were o btained. COMPARISON: Chest CT dated 06/21/2021, bone scan dated 03/02/[address] abdomen and pelvis dated 2019 FINDINGS: Persistent region of mild increased uptake at the left ischial corresponding to sclerotic lesion on p rior CT . Otherwise physiologic distribution of bone and soft tissue uptake. No new bone lesions iden tified. Couple tiny foci of contamination external to the patient seen projecting over the soft tissu es at the anterior left pelvis on the initial images but not on subsequent imaging likely following r emoval of the contamination. IMPRESSION: 1. No change in a focus of increased uptake at the left ischium corresponding to a sclerotic lesion o n prior CT consistent with metastatic disease. No new bone lesions identified. Reviewed, dictated and finalized at location A. IMPRESSION: 1. No change in a focus of increased uptake at the left ischium corresponding t o a sclerotic lesion on prior CT consistent with metastatic disease. No new bon e lesions identified.
--- NOTE | ~2021-06-21 | CT_ITS ---
EXAMINATION: CT diagnostic chest w con EXAM DATE: 06/21/2021 08:58 INDICATION: Upper outer quadrant right breast cancer. TECHNIQUE: Spiral CT of the chest following intravenous injection of 75 mL Omnipaque 350. Axial, cor onal and sagittal images of the chest were reviewed. Coronal maximum intensity pixel images of chest reviewed. The dose-length product (DLP) for this examination was 189.58 mGy-cm. The exposure was t ailored according to patient size (auto mA exposure control), and iterative reconstruction (ASIR) was used as additional dose reduction technique. Comparison is made to prior examination from 03/02/2021. FINDINGS: Status post right-sided mastectomy. A there are some scattered pulmonary subcentimeter nod ules are unchanged. Correlating with prior history, these could be treated metastatic lesions. No new pulmonary nodules. Some right upper lobe scarring. There are no pleural or pericardial effusions. Tracheobronchial tree is patent. There is no mediastinal, hilar or axillary lymphadenopathy. The re is no pneumothorax. Heart normal in size. No evidence of coronary arterial calcification. Ther e is an aberrant right subclavian artery, a normal congenital variant. Right axillary lymph node diss ection. Upper abdomen is unremarkable. Subtle subtle regions of increased density in the manubrium and sternum are unchanged, possibly metastatic disease. Correlate with bone scan IMPRESSION: 1. Stable small pulmonary nodules could be treated metastatic disease. 2. Possible bone lesions unchanged. Reviewed, dictated and finalized at location B.
[2021-06-21 08:52] LABS: Estimated Glomerular Filt Rate 41
== END 2021-06-21 08:09 | disposition home or self-care (01) ==
PROVIDERS: PCP Family Medicine; Visit Provider Internal Medicine Hematology & Oncology
DX: C50.411 Malignant neoplasm of upper-outer quadrant of right female breast (principal); Z17.0 Estrogen receptor positive status [ER+]
CPT/HCPCS: 71260; 78306; A9561; Q9967

== ENCOUNTER 2021-10-13 08:28 | Outpatient (CLI) | payer BC, SELFPAY ==
--- NOTE | ~2021-10-13 | CT_ITS ---
EXAMINATION: CT diagnostic chest w con EXAM DATE: 10/13/2021 09:04 INDICATION: malignant neoplasm of upper outer quad of RT breast . TECHNIQUE: Spiral CT of the chest following intravenous injection of 75 mL Omnipaque 350. Axial, cor onal and sagittal images of the chest were reviewed. Coronal maximum intensity pixel images of chest reviewed. The dose-length product (DLP) for this examination was 195.38 mGy-cm. The exposure was t ailored according to patient size (auto mA exposure control), and iterative reconstruction (ASIR) was used as additional dose reduction technique. Comparison is made to prior examination from 06/21/2021. FINDINGS: Nodules of proteinaceous fluid or soft tissue density along the skin surface of the left br east superiorly, which could be directly visualized for clinical correlation. Surgical changes from r ight-sided mastectomy and lymph node dissection. There is an aberrant right subclavian artery, a marycruz enital variant. Right apical airspace disease is unchanged, scarring. Several small pulmonary nodules are unchanged, granulomas or treated metastatic disease. The lungs are otherwise clear. No central pulmonary emboli. There are no pleural or pericardial effu sions. Tracheobronchial tree is patent. There is no mediastinal, hilar or axillary lymphadenopath y. There is no pneumothorax. Heart normal in size. No evidence of coronary arterial calcificati on. Upper abdomen is unremarkable. Subtle small regions of increased sternal and manubrial density are also stable. IMPRESSION: 1. Stable exam. Reviewed, dictated and finalized at location A. GE ATTENDANT IMPRESSION: 1. Stable exam.
--- NOTE | ~2021-10-13 | NM_ITS ---
EXAMINATION: NM bone scan whole body DATE: 10/13/2021 12:35 INDICATION: Malignant neoplasm of upper outer quadrant of right breast. TECHNIQUE: 24.5 mCi Tc-99m HDP was administered intravenously. Delayed whole-body scintigrams were o btained. COMPARISON: Chest CT 10/13/2021, 06/21/2021, bone scan 06/21/2021, PET CT 03/24/2020 FINDINGS: There is increased activity in left ischial tuberosity. There are foci of increased activit y in the spine correlating with spondylosis by CT. IMPRESSION: 1. Unchanged distribution of increased activity involving left ischial tuberosity correlating with a sclerotic lesion by CT, consistent with metastatic disease. Reviewed, dictated and finalized at location B. SHER ACCORDION IMPRESSION: 1. Unchanged distribution of increased activity involving left ischial tuberosi ty correlating with a sclerotic lesion by CT, consistent with metastatic diseas e.
[2021-10-13 08:55] LABS: Estimated Glomerular Filt Rate 38
== END 2021-10-13 08:29 | disposition home or self-care (01) ==
LOC: ANHIMG 08:32
PROVIDERS: PCP Family Medicine; Visit Provider Internal Medicine Hematology & Oncology
DX: C50.411 Malignant neoplasm of upper-outer quadrant of right female breast (principal); Z17.0 Estrogen receptor positive status [ER+]
CPT/HCPCS: 71260; 78306; A9561; Q9967

== ENCOUNTER 2022-02-04 08:35 | Outpatient (CLI) | payer BC, SELFPAY ==
--- NOTE | ~2022-02-04 | CT_ITS ---
EXAMINATION: CT diagnostic chest w con DATE: 02/04/2022 09:09 INDICATION: History of breast cancer TECHNIQUE: Transaxial computed tomographic images of the chest were obtained after the administration of 75 cc of Omnipaque 350 intravenous contrast. The dose-length product (DLP) was 164.48 mGy-cm. Ite rative reconstruction was used. COMPARISON: 10/13/2021 FINDINGS: There are changes of right mastectomy. Multiple stable pulmonary nodules are identified. No new pulmonary nodules are seen. The lungs are free of acute opacities. There is no pleural effusion or pneumothorax. No pathologically enlarged thoracic lymph nodes are identified. The heart size is no rmal. Scarring is noted in the right lung apex. There is an aberrant origin of right subclavian arter y. IMPRESSION: 1. Multiple stable pulmonary nodules, consistent with treated metastatic disease. Reviewed, dictated and finalized at location B. IMPRESSION: 1. Multiple stable pulmonary nodules, consistent with treated metastatic diseas e.
[2022-02-04 09:02] LABS: Estimated Glomerular Filt Rate 35
== END 2022-02-04 08:36 | disposition home or self-care (01) ==
LOC: ANHIMG 08:38
PROVIDERS: PCP Family Medicine; Visit Provider Internal Medicine Hematology & Oncology
DX: C50.411 Malignant neoplasm of upper-outer quadrant of right female breast (principal); Z17.0 Estrogen receptor positive status [ER+]; R91.8 Other nonspecific abnormal finding of lung field
CPT/HCPCS: 71260; Q9967

== ENCOUNTER 2022-02-09 10:34 | Outpatient (CLI) | payer BC, SELFPAY ==
--- NOTE | ~2022-02-09 | NM_ITS ---
NM bone scan whole body DATE: 02/09/2022 13:56 INDICATION: Right breast malignancy TECHNIQUE: Routine anterior and posterior whole body delayed images after intravenous administration of 25.1 mCi 99m technetium MDP COMPARISON: 10/13/2021 radionuclide bone scan FINDINGS: Again noted is a focus of increased uptake at the left ischial tuberosity which appears sta ble since 10/13/2021. No new area of abnormal increased uptake of the axial or appendicular skeleton is identified. Bilateral renal activity. IMPRESSION: No change since 10/13/2021 cm of persistent focus of increased uptake at left ischial tube rosity corresponding to reported sclerotic CT lesion, consistent with metastatic disease Reviewed, dictated and finalized at Location A. Reviewed, dictated and finalized at location B. IMPRESSION: No change since 10/13/2021 cm of persistent focus of increased uptak e at left ischial tuberosity corresponding to reported sclerotic CT lesion, con sistent with metastatic disease
== END 2022-02-09 10:35 | disposition home or self-care (01) ==
PROVIDERS: PCP Family Medicine; Visit Provider Internal Medicine Hematology & Oncology
DX: C50.411 Malignant neoplasm of upper-outer quadrant of right female breast (principal); Z17.0 Estrogen receptor positive status [ER+]
CPT/HCPCS: 78306; A9561

== ENCOUNTER 2022-05-26 08:38 | Outpatient (CLI) | payer BC, SELFPAY ==
--- NOTE | ~2022-05-26 | CT_ITS ---
EXAMINATION: CT diagnostic chest w con DATE: 05/26/2022 09:04 INDICATION: Malignant neoplasm of the upper outer quadrant of the right breast TECHNIQUE: Transaxial computed tomographic images of the chest were obtained after the administration of 75 cc of Omnipaque 350 intravenous contrast. The dose-length product (DLP) was 143.57 mGy-cm. Ite rative reconstruction was used. COMPARISON: 02/04/2022 FINDINGS: Again seen are multiple stable pulmonary nodules. No new pulmonary nodules are identified. There are changes of right mastectomy and right axillary lymph node dissection. Scarring is present i n the right lung apex. No pathologically enlarged thoracic lymph nodes are identified. The heart size is normal. Aberrant origin of the right subclavian artery is again noted. A probable sebaceous cyst in the upper outer quadrant of the left breast appears to have decreased in size. There is moderate t horacic spondylosis. IMPRESSION: 1. Multiple stable pulmonary nodules, consistent with treated metastatic disease. Reviewed, dictated and finalized at location B. IMPRESSION: 1. Multiple stable pulmonary nodules, consistent with treated metastatic diseas e.
--- NOTE | ~2022-05-26 | NM_ITS ---
EXAMINATION: NM bone scan whole body DATE: 05/26/2022 12:25 INDICATION: Malignant neoplasm of upper outer quadrant of right breast. TECHNIQUE: 25.0 mCi Tc-99m HDP was administered intravenously. Delayed whole-body scintigrams were o btained. COMPARISON: Chest CT 05/26/2022, bone scan 02/09/2022, CT abdomen and pelvis 07/31/2020 FINDINGS: There is increased activity in the left ischium correlating with a sclerotic lesion by CT, consistent with metastatic disease. There are foci of increased activity in the right foot and ankle without radiographic comparison, likely osteoarthritis. IMPRESSION: 1. Unchanged distribution of increased activity in the left ischium correlating with a sclerotic lesi on by CT, consistent with metastatic disease. Reviewed, dictated and finalized at location A. IMPRESSION: 1. Unchanged distribution of increased activity in the left ischium correlating with a sclerotic lesion by CT, consistent with metastatic disease.
[2022-05-26 09:00] LABS: Estimated Glomerular Filt Rate 41
== END 2022-05-26 08:39 | disposition home or self-care (01) ==
PROVIDERS: PCP Family Medicine; Visit Provider Internal Medicine Hematology & Oncology
DX: C50.411 Malignant neoplasm of upper-outer quadrant of right female breast (principal); Z17.0 Estrogen receptor positive status [ER+]; R91.8 Other nonspecific abnormal finding of lung field; M89.9 Disorder of bone, unspecified
CPT/HCPCS: 36415; 71260; 78306; 80053; 85025; 86300; A9561; Q9967

== ENCOUNTER 2022-11-10 08:38 | Outpatient (CLI) | payer MEDICARE, OTHER, SELFPAY ==
--- NOTE | ~2022-11-10 | NM_ITS ---
EXAMINATION: NM bone scan whole body DATE: 11/10/2022 13:57 INDICATION: Right breast cancer TECHNIQUE: 24.2 mCi Tc-99m HDP was administered intravenously. Delayed whole-body scintigrams were o btained. COMPARISON: Bone scan dated 05/26/[address] dated 11/10/2022 FINDINGS: Increased uptake at the right lateral malleolus corresponding to a nondisplaced fracture on radiograp h dated 06/03/2022. The additional small foci of increased uptake at the medial right ankle and right m idfoot have resolved also likely posttraumatic in etiology. Residual mild increased uptake at the lef t ischium corresponding to FDG avid sclerotic bone lesion on PET CT dated consistent with meta static disease. No other suspicious foci of abnormal bone uptake. There is asymmetric increased activ ity anterior right ribs relative to the left resulting from decreased soft tissue attenuation related to a prior right mastectomy. IMPRESSION: 1. Unchanged asymmetric mild increased uptake at the right ischium corresponding to chronic metastati c disease. No new lesions suspicious for additional osseous metastases. 2. Small focus of mild uptake at the right lateral malleolus corresponding to a now chronic nondispla jean-pierre avulsion fracture the tip of the malleolus. Reviewed, dictated and finalized at location A. FERMENTER IMPRESSION: 1. Unchanged asymmetric mild increased uptake at the right ischium correspondin g to chronic metastatic disease. No new lesions suspicious for additional osseo us metastases. 2. Small focus of mild uptake at the right lateral malleolus corresponding to a now chronic nondisplaced avulsion fracture the tip of the malleolus.
--- NOTE | ~2022-11-10 | CT_ITS ---
Clinical Indication: Breast cancer CT Scan of the Chest with Contrast: Technique: Contiguous sections were acquired throughout the chest after intravenous administration of 75 cc of Omnipaque 350. Dose reduction technique was used on this scan by utilizing automated exposu re control and iterative reconstruction technique. The dose-length product (DLP) was 147.48 mGy-cm. COMPARISON: 05/26/2022 Findings: There is no evidence of any significant mediastinal, hilar or axillary lymphadenopathy. There is no f illing defect in the pulmonary arterial tree to suggest pulmonary embolus. There is no evidence of ao rtic dissection or aneurysm. Aberrant right subclavian artery is incidentally noted. Patient is statu s post right mastectomy. There is no evidence of pleural or pericardial effusion. There is probable mild post radiation changes in the right upper lobe. No suspicious pulmonary nodule or consolidation seen otherwise. Left lung is clear. Images through the upper abdomen reveal no abnormalities. Impression: No evidence for active malignancy or metastatic disease. Mild post radiation change in the right upper lobe is similar to prior exam. Status post right mastectomy. Reviewed, dictated and finalized at location . D SERVICE ENGINEER Impression: No evidence for active malignancy or metastatic disease. Mild post radiation change in the right upper lobe is similar to prior exam. Status post right mastectomy.
[2022-11-10 09:31] LABS: Estimated Glomerular Filt Rate 38
== END 2022-11-10 08:39 | disposition home or self-care (01) ==
PROVIDERS: PCP Family Medicine; Visit Provider Internal Medicine Hematology & Oncology
DX: C50.411 Malignant neoplasm of upper-outer quadrant of right female breast (principal); Z17.0 Estrogen receptor positive status [ER+]; C50.919 Malignant neoplasm of unspecified site of unspecified female breast; C78.00 Secondary malignant neoplasm of unspecified lung; C79.51 Secondary malignant neoplasm of bone; Z90.11 Acquired absence of right breast and nipple
CPT/HCPCS: 71260; 78306; A9503; Q9967

== ENCOUNTER 2023-04-24 08:04 | Outpatient (CLI) | payer MEDICARE, OTHER, SELFPAY ==
--- NOTE | ~2023-04-24 | CT_ITS ---
Clinical Indication: Breast cancer CT Scan of the Chest with Contrast: Technique: Contiguous sections were acquired throughout the chest after intravenous administration of 75 cc of Omnipaque 350. Dose reduction technique was used on this scan by utilizing automated exposu re control and iterative reconstruction technique. The dose-length product (DLP) was 165.77 mGy-cm. COMPARISON: 11/10/2022 Findings: There is no evidence of any significant mediastinal, hilar or axillary lymphadenopathy. There is no f illing defect in the pulmonary arterial tree to suggest pulmonary embolus. There is no evidence of ao rtic dissection or aneurysm. Aberrant right subclavian artery noted. There is no evidence of pleural or pericardial effusion. Stable probable postradiation change or scarring at the right lung apex. No suspicious pulmonary nodu le identified. Images through the upper abdomen reveal no abnormalities. Patient is status post right mastectomy. St able subcutaneous mass noted at the upper, anterior left chest region. Impression: No evidence for active malignancy or metastatic disease. Status post right mastectomy. Stable postradiation change or scarring at the right lung apex. Stable subcutaneous mass at the upper, anterior left chest region, presumably sebaceous cyst. Reviewed, dictated and finalized at location . Impression: No evidence for active malignancy or metastatic disease. Status post right mastectomy. Stable postradiation change or scarring at the [facility] lung apex. Stable subcutaneous mass at the upper, anterior left chest region, presumably s ebaceous cyst.
--- NOTE | ~2023-04-24 | NM_ITS ---
Whole-body bone scan: History: Breast cancer. COMPARISON: 11/10/2022 Radiopharmaceutical: 23.3 mCi of technetium 99m MDP was administered intravenously. Procedure: Three hour delayed anterior and posterior whole-body bone scan was performed. Findings: Subtle increased uptake at the left ischium is unchanged. Tiny focus of very subtle uptake at the right lateral malleolus region is also unchanged. Remaining uptake appears physiologic in dist ribution. Impression: Stable area of increased uptake at the left ischium, consistent with chronic metastatic disease. Tiny focus of increased uptake at the right lateral malleolus, compatible with posttraumatic uptake. Reviewed, dictated and finalized at location . Impression: Stable area of increased uptake at the left ischium, consistent with chronic me tastatic disease. Tiny focus of increased uptake at the right lateral malleolus, compatible with posttraumatic uptake.
[2023-04-24 08:42] LABS: Estimated Glomerular Filt Rate 38
== END 2023-04-24 08:05 | disposition home or self-care (01) ==
PROVIDERS: PCP Family Medicine; Visit Provider Internal Medicine Hematology & Oncology
DX: C50.411 Malignant neoplasm of upper-outer quadrant of right female breast (principal); Z90.11 Acquired absence of right breast and nipple; Z17.0 Estrogen receptor positive status [ER+]; R94.8 Abnormal results of function studies of other organs and systems; Z92.3 Personal history of irradiation; R22.2 Localized swelling, mass and lump, trunk
CPT/HCPCS: 71260; 78306; A9503; Q9967

== ENCOUNTER 2023-09-11 08:27 | Outpatient (CLI) | payer MEDICARE, OTHER, SELFPAY ==
--- NOTE | ~2023-09-11 | CT_ITS ---
Clinical Indication: Breast cancer CT Scan of the Chest with Contrast: Technique: Contiguous sections were acquired throughout the chest after intravenous administration of 75 cc of Omnipaque 350. Dose reduction technique was used on this scan by utilizing automated exposu re control and iterative reconstruction technique. The dose-length product (DLP) was 195.33 mGy-cm. COMPARISON: 04/24/2023 Findings: There is a 2.2 cm very superficially located mass, possible skin, at the upper left breast region, similar to prior exam (axial image 13). There is evidence of prior right mastectomy. There is no evidence of any significant mediastinal, hilar or axillary lymphadenopathy. There is no f illing defect in the pulmonary arterial tree to suggest pulmonary embolus. There is no evidence of ao rtic dissection or aneurysm. Aberrant right subclavian artery noted. There is no evidence of pleural or pericardial effusion. Right apical scarring noted. No suspicious pulmonary abnormality seen. Images through the upper abdomen reveal no abnormalities. Impression: No interval change from prior exam. No evidence for active malignancy or metastatic disease. Stable right apical scarring. Status post right mastectomy. Stable superficial upper left breast mass, likely sebaceous cyst. Reviewed, dictated and finalized at [facility]. RACT POST OFFICE CLERK Impression: No interval change from prior exam. No evidence for active malignancy or metast atic disease. Stable right apical scarring. Status post right mastectomy. Stable superficial upper left breast mass, likely sebaceous cyst.
--- NOTE | ~2023-09-11 | NM_ITS ---
EXAMINATION: NM bone scan whole body DATE: 09/11/2023 13:18 INDICATION: Malignant neoplasm of upper outer quadrant of right breast. TECHNIQUE: 25.0 mCi Tc-99m HDP was administered intravenously. Delayed whole-body scintigrams were o btained. COMPARISON: Bone scan 04/24/2023, chest CT 09/11/2023, CT chest, abdomen, and pelvis 07/31/2020 FINDINGS: Again seen is increased activity in left ischium. IMPRESSION: 1. Stable increased activity in left ischium correlating with a sclerotic lesion by CT, consistent wi th metastatic disease. Reviewed, dictated and finalized at location A. ERTY AND SUPPLY OFFICER IMPRESSION: 1. Stable increased activity in left ischium correlating with a sclerotic lesio n by CT, consistent with metastatic disease.
[2023-09-11 09:22] LABS: Estimated Glomerular Filt Rate 41
== END 2023-09-11 08:28 | disposition home or self-care (01) ==
PROVIDERS: PCP Family Medicine; Visit Provider Internal Medicine Hematology & Oncology
DX: C50.411 Malignant neoplasm of upper-outer quadrant of right female breast (principal); Z17.0 Estrogen receptor positive status [ER+]
CPT/HCPCS: 71260; 78306; A9503; Q9967

== ENCOUNTER 2024-03-29 09:28 | Outpatient (CLI) | payer MEDICARE, OTHER, SELFPAY ==
--- NOTE | ~2024-03-29 | CT_ITS ---
EXAMINATION: CT chest abdomen pelvis wo con DATE: 03/29/2024 09:52 INDICATION: Right breast cancer TECHNIQUE: Computed tomography (CT) of the chest, abdomen, and pelvis was performed without intraveno us contrast. Automated exposure control and iterative reconstruction technique were employed. The dos e-length product was 402.25 mGy-cm. COMPARISON: Chest CT dated 09/01/2023 and 05/26/[address] chest, abdomen and pelvis dated 07/31/2020 FINDINGS: CHEST CT: Postoperative change of prior right mastectomy with multiple surgical clips at the right axilla and s ubpectoral region consistent with prior lymph node dissection. Stable appearance of a chronic periphe ral region of likely radiation fibrosis along the anterior right upper lobe most prominent at the ape x. A few likely benign <4 mm right lower lobe nodules and a slightly larger 7 x 4 mm likely intrafiss ural lymph node along the right major fissure unchanged since 05/26/2022. No new or enlarging pulmonar y nodules, pneumonia, pulmonary edema or pleural effusion. Heart size is normal. No pericardial effus ion. Thoracic aorta is normal in caliber. Normal anatomic variant recta esophageal aberrant right sub clavian artery. No pathologically enlarged thoracic lymphadenopathy. A couple centrally calcified rina mal nodules in the superior left breast, the larger measuring 2.3 x 1.6 cm, also unchanged since 05/26 and also likely benign. Moderate to severe spondylosis at the lower cervical and mid to lower t horacic spine. ABDOMEN/PELVIS CT: Liver, gallbladder, spleen, pancreas, bilateral adrenal glands and kidneys are normal. Bowels includi ng the appendix are normal. Stable appearance of a fibroid uterus with several calcified uterine fibr oids. No free intraperitoneal gas or fluid. No pathologically enlarged abdominal or pelvic lymphadeno ankita. Moderate disc height loss at L2-L3 with otherwise mild lumbar spondylosis. IMPRESSION: 1. Status post right mastectomy and right axillary lymph node dissection for reported breast cancer. No evident metastatic disease in the chest, abdomen or pelvis. 2. Fibroid uterus. Reviewed, dictated and finalized at location B. IMPRESSION: 1. Status post right mastectomy and right axillary lymph node dissection for re ported breast cancer. No evident metastatic disease in the chest, abdomen or pe lvis. 2. Fibroid uterus.
--- NOTE | ~2024-03-29 | NM_ITS ---
EXAMINATION: NM bone scan whole body DATE: 03/29/2024 13:58 INDICATION: Right breast cancer TECHNIQUE: 25 mCi Tc-99m HDP was administered intravenously. Delayed whole-body scintigrams were obt ained. COMPARISON: CT dated 03/29/2024 and 04/24/2023 FINDINGS: Mild likely degenerative joint centered uptake at the bilateral acromioclavicular and sternoclavicula r joints. Persistent mild uptake at the left ischial correspond to sclerotic lesion on CT consistent with metastatic disease. No other new foci of increased uptake to suggest new metastatic disease. IMPRESSION: 1. Unchanged focus of increased uptake corresponding to sclerotic lesion at the left ischial consiste nt with chronic metastatic disease. Reviewed, dictated and finalized at location A. IMPRESSION: 1. Unchanged focus of increased uptake corresponding to sclerotic lesion at the left ischial consistent with chronic metastatic disease.
== END 2024-03-29 09:29 | disposition home or self-care (01) ==
PROVIDERS: PCP Family Medicine; Visit Provider Internal Medicine Hematology & Oncology
DX: C50.411 Malignant neoplasm of upper-outer quadrant of right female breast (principal); Z17.0 Estrogen receptor positive status [ER+]; M89.9 Disorder of bone, unspecified; Z90.11 Acquired absence of right breast and nipple; D25.9 Leiomyoma of uterus, unspecified
CPT/HCPCS: 71250; 74176; 78306; A9503

== ENCOUNTER 2024-09-12 09:14 | Outpatient (CLI) | payer MEDICARE, OTHER, SELFPAY ==
--- NOTE | ~2024-09-12 | CT_ITS ---
CT Scan of the Chest without Contrast: Clinical Indication: Breast cancer Technique: Contiguous sections were acquired throughout the chest without intravenous contrast. Dose reduction technique was used on this scan by utilizing automated exposure control and iterative recon struction technique. The dose-length product (DLP) was 123.21 mGy-cm. COMPARISON: 03/29/2024 Findings: There is no evidence of any significant mediastinal, hilar or axillary lymphadenopathy. Aberrant righ t subclavian artery noted. There is no evidence of pleural or pericardial effusion. Stable groundglass/streaky opacity right lung apex, likely postradiation change. Lungs are otherwise clear. No suspicious pulmonary nodule. Images through the upper abdomen reveal no abnormalities. Stable 2.7 x 1.8 cm superficial mass the left breast (axial image 10). Status post right mastectomy a nd probable right axillary kristie dissection. Impression: Status post right mastectomy and right axillary kristie dissection. Associated postradiation change rig ht upper lobe. 2.7 x 1.8 cm superficial mass in left breast is similar to prior exam. Correlate with physical exam. This is possibly large sebaceous cyst. Reviewed, dictated and finalized at location . EAN SPECIALTIES COOK Impression: Status post right mastectomy and right axillary kristie dissection. Associated po stradiation change right upper lobe. 2.7 x 1.8 cm superficial mass in left breast is similar to prior exam. Correlat e with physical exam. This is possibly large sebaceous cyst.
--- NOTE | ~2024-09-12 | NM_ITS ---
EXAMINATION: NM bone scan whole body DATE: 09/12/2024 13:35 INDICATION: Malignant neoplasm of upper outer quadrant of right breast TECHNIQUE: 25.0 mCi Tc-99m HDP was administered intravenously. Delayed whole-body scintigrams were o btained. COMPARISON: Bone scan 11/29/2023, CT chest, abdomen, and pelvis 03/29/2024 FINDINGS: There is increased activity in left ischium correlating with a sclerotic lesion by CT, cons istent with metastatic disease. IMPRESSION: 1. Stable increased activity in left ischium correlating with a sclerotic lesion by CT, consistent wi th metastatic disease. Reviewed, dictated and finalized at location A. ERNMAKER WOOD IMPRESSION: 1. Stable increased activity in left ischium correlating with a sclerotic lesio n by CT, consistent with metastatic disease.
== END 2024-09-12 09:15 | disposition home or self-care (01) ==
PROVIDERS: PCP Family Medicine; Visit Provider Internal Medicine Hematology & Oncology
DX: C50.411 Malignant neoplasm of upper-outer quadrant of right female breast (principal); N63.20 Unspecified lump in the left breast, unspecified quadrant; Z17.0 Estrogen receptor positive status [ER+]; Z90.11 Acquired absence of right breast and nipple; Z92.3 Personal history of irradiation
CPT/HCPCS: 71250; 78306; A9503

== ENCOUNTER 2025-04-24 09:07 | Outpatient (CLI) | payer MEDICARE, OTHER, SELFPAY ==
--- NOTE | ~2025-04-24 | NM_ITS ---
EXAMINATION: NM bone scan whole body DATE: 04/24/2025 13:34 INDICATION: Right breast cancer TECHNIQUE: 25 mCi Tc-99m HDP was administered intravenously. Delayed whole-body scintigrams were obt ained. COMPARISON: Bone scan dated 09/12/2024, chest CT dated 04/24/[address] abdomen and pelvis dated 03/29 FINDINGS: Again seen is a small region of mild increased activity in the region of the left ischial which corre sponds to a sclerotic lesion on CT dated 03/29/2024 consistent with metastatic disease. Otherwise phys iologic distribution of bone and soft tissue activity with no other lesions suspicious for malignancy /metastatic disease identified. IMPRESSION: 1. Stable focus of increased activity in the left ischium correlating with a sclerotic lesion by CT c onsistent with metastatic disease. No new bone lesions identified. Reviewed, dictated and finalized at location A. IMPRESSION: 1. Stable focus of increased activity in the left ischium correlating with a sc lerotic lesion by CT consistent with metastatic disease. No new bone lesions id entified.
--- NOTE | ~2025-04-24 | CT_ITS ---
EXAMINATION: CT diagnostic chest wo con DATE: 04/24/2025 09:53 INDICATION: mAL ROBER OF UPPER OUTER QUAD TECHNIQUE: Computed tomography (CT) of the chest was performed without intravenous contrast. Addition al 3D reconstructions utilizing coronal maximum intensity projection (MIP) were performed. Automated exposure control and iterative reconstruction technique were employed. The dose-length product was 14 9.87 mGy-cm. COMPARISON: Chest CT dated 09/12/2024 FINDINGS: Status post right mastectomy with right axillary lymph node dissection. Unchanged pleural parenchymal scarring at the right apex and minimal reticular opacities along the anterior right upper and middle lobes all of which could be related to radiation fibrosis. Unchanged 5 mm semicircular likely para f issural lymph node along the right major fissure. A few additional unchanged <4 mm nodular opacities in the bilateral lower lobes and lingula. There are couple new ill-defined Adelina foci of groundgl ass opacity in the left lower lobe, one with 2 mm solid component on series 4 image 63. There is also a new 3 mm nodule in the left lower lobe on image 85. No pneumonia, pulmonary edema or pleural effus ion. Heart size is normal. No pericardial effusion. Thoracic aorta is normal in caliber. Normal anato kalli variant retroesophageal aberrant right subclavian artery. No pathologically enlarged thoracic lym phadenopathy. Visualized upper abdomen is unremarkable. Moderate thoracic spondylosis. IMPRESSION: 1. New 3 mm solid nodule left lower lobe and 2 new subcentimeter ill-defined groundglass nodules also in the left lower lobe, one with 2 mm solid component. This could be infectious, inflammatory or met astatic in etiology. Consider 3 month follow-up chest CT. 2. 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 Reviewed, dictated and finalized at location A. IMPRESSION: 1. New 3 mm solid nodule left lower lobe and 2 new subcentimeter ill-defined gr oundglass nodules also in the left lower lobe, one with 2 mm solid component. T his could be infectious, inflammatory or metastatic in etiology. Consider 3 mon th follow-up chest CT. 2. 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
--- OUTSIDE RECORDS SUMMARY | 2025-04-24 09:11 | XMS_ITS | Encounter Summary ---
Author Organization [facility] Address [address] [place] [address] Care Team Providers Care Csr Technician Name Role Phone Fan Ledezma MD Primary Care Provider [phone] Encounter Details Date Type Department Care Team (Late Contact Info) Description 03/04/2020 Chart Note [facility] Radiation Therapy [address] [place] [address] [place] [address] [place] [address] Social History Tobacco Use Types Packs/Day Years Used Date Smoking Tobacco: Never Smokeless Tobacco: Never Alcohol Use Standard Drinks/Week Comments Never 0 (1 standard drink = 0.6 oz pur e alcohol) Comments No Sex and Gender Information Value Date Recorded Sex Assigned at Not on file Legal Sex Female 3:10 PM CDT Gender Identity Not on file Sexual Orientation Not on file COVID-19 Exposure Response Date Recorded In the last month, have you been in contact with someone who was confirmed or suspected to have Coronavirus / COVID-19? No / Unsure 03/02/2020 8:20 AM CDT documented as of this encounter Plan of Treatment Upcoming Encounters Date Type Department Care Team (Late st Contact Info) Description 05/01/2025 9:00 AM CDT Office Visit [facility] - [place] [address] [facility] [address] [place] [address] Adan Pratt MD [address] [facility] [address] [place] [address] documented as of this encounter Visit Diagnoses Not on filedocumented in this encounter Care Teams Csr Technician Relationship Specialty Start Date End Date Fan Ledezma MD [address] [facility] [address] [place] [address] PCP - General Family Practice 02/27/20 documented as of this encounter
--- OUTSIDE RECORDS SUMMARY | 2025-04-24 09:11 | XMS_ITS | Clinical Summary ---
Author Organization [facility] Address [address] [place] [address] Care Team Providers Care Plastics Technician Name Role Phone Fan Ledezma MD Primary Care Provider Allergies Active Allergy Reactions Criticality Noted Date Comments Clarithromycin Nausea and Vomiting High 03/02/2020 Tramadol Hallucination High 03/02/2020 Medications magnesium oxide 250 mg magnesium Tablet Take by mouth. Activ e naproxen (NAPROSYN) 250 mg tablet Take 250 mg by mouth 2 times daily with meals. Active methylPREDNISolo ne (MEDROL DOSPACK) 4 mg Tablets, Dose Pack Use as directed 21 Tablet 1 Active Calcium-Vitamin D3-Vitamin K 500-500-40 mg-unit-mcg Tablet, ChewableIndicati ons:Malignant neoplasm of upper-outer quadrant of right breast in female, estrogen receptor positive (CMS/HCC),Carcin jorge l of breast metastatic to bone, unspecified laterality (CMS/HCC) Take 650 mg by mouth every 12 hours. 60 Tablet 5 2 Active Additional Information Patient taking differently:650 mg OralDAILY, Takes every other day currently, Reported on 04/08/2024 anastrozole (ARIMIDEX) 1 mg tablet take 1 tablet by mouth every day 90 Tablet 3 4 Active cholecalciferol 1,250 mcg (50,000 unit) CapsuleIndicatio ns:Malignant neoplasm of upper-outer quadrant of right breast in female, estrogen receptor positive (CMS/HCC) TAKE 1 CAPSULE (50,000 UNITS) BY MOUTH EVERY 7 DAYS 12 Capsule 3 4 Active palbociclib (Ibrance) 75 mg tabletIndication s:Malignant neoplasm of upper-outer quadrant of right breast in female, estrogen receptor positive (CMS/HCC),Carcin jorge l of breast metastatic to bone, unspecified laterality (CMS/HCC) TAKE 1 TABLET BY MOUTH 1 TIME A DAY ON DAYS 1 TO 21 OF A 28 DAY CYCLE 21 Tablet 4 5 Active Active Problems Problem Noted Date Diagnosed Date Breast cancer metastasized to bone 07/10/2020 Breast cancer metastasized to lung 07/10/2020 Malignant neoplasm of upper- outer quadrant of right breast in female, estrogen receptor positive 03/17/2020 Encounters Date Type Department Care Team Description 04/23/2025 Orders Only [facility] Oncology [facility] Hematology [facility] [address] [place] [id number] Adan Pratt MD 04/16/2025 External Device Data STL ABSTRACTION Provider, Abstract 03/21/2025 Refill [facility] Oncology [facility] Hematology [facility] [address] [place] [id number] Adan Pratt MD Malignant neoplasm of upper-outer quadrant of right breast in female, estrogen receptor positive (CMS/HCC) (Primary Dx); Carcinoma of breast metastatic to bone, unspecified laterality (CMS/HCC) 03/19/2025 External Device Data STL ABSTRACTION Provider, Abstract 02/27/2025 Orders Only [facility] Oncology and Hematology [facility] [address] [place] [address] Adan Pratt MD 02/26/2025 Orders Only [facility] Oncology and Hematology [facility] [address] [place] [address] Adan Pratt MD 02/19/2025 External Device Data STL ABSTRACTION Provider, Abstract 02/18/2025 External Device Data STL ABSTRACTION Provider, Abstract 02/06/2025 9:00 AM CDT Office Visit [facility] Oncology and Hematology [facility] [address] [place] [id number] Adan Pratt MD Malignant neoplasm of upper-outer quadrant of right breast in female, estrogen receptor positive (CMS/HCC) (Primary Dx) from Last 3 Months Family History Medical History Relation Name Comments Cancer Brother 1 Cancer Brother 2 Cancer Brother 3 Diabetes Brother 4 Cancer Father Diabetes Mother Heart Disease Mother Relation Name Status Comments Brother 1 Brother 2 Alive Brother 3 Alive Brother 4 Alive Father Mother Social History Tobacco Use Types Packs/Day Years Used Date Smoking Tobacco: Never Smokeless Tobacco: Never Tobacco Cessation:Counseling Given: Not Answered Alcohol Use Standard Drinks/Week Comments Never 0 (1 standard drink = 0.6 oz pur e alcohol) Comments No Sex and Gender Information Value Date Recorded Sex Assigned at Not on file Legal Sex Female 3:10 PM CDT Gender Identity Not on file Sexual Orientation Not on file Last Filed Vital Signs Vital Sign Reading Time Taken Comments Blood Pressure 108/76 02/06/2025 8:57 AM CDT Pulse 78 02/06/2025 8:57 AM CDT Temperature 36.1 C (96.9 F) 02/06/2025 8:57 AM CDT Respiratory Rate 15 02/06/2025 8:57 AM CDT Oxygen Saturation 96% 02/06/2025 8:57 AM CDT Inhaled Oxygen Concentration - - Weight 76.7 kg (169 lb) 03/10/2023 8:31 AM CDT Height 149.9 cm (4' 11) 04/08/2022 8:49 AM CDT Body Mass Index 34.13 04/08/2022 8:49 AM CDT Plan of Treatment Upcoming Encounters Date Type Department Care Team (Late st Contact Info) Description 05/01/2025 9:00 AM CDT Office Visit [facility] Oncology and Hematology - [place] [address] [facility] [address] [place] [address] Adan Pratt MD [address] [facility] [address] [place] [address] Health Maintenance Due Date Last Done Comments DTAP/TDAP/TD VACCINES (1 - Tdap) 1974 PNEUMOCOCCAL VACCINE 50+ YEARS (1 of 2 - PCV) 06/05/19 76 Traditional Medicare (O) Annual Wellness Visit 06/05 ZOSTER VACCINE (1 of 2) 1974 COLORECTAL SCREENING 2002 Colorectal Cancer Screening 2002 FIT-DNA Q 3 years 2002 FIT/FOBT Q 1 year 2002 Flex Sig/CT Colonography Q 5 years 2002 BREAST CANCER SCREENING 03/10/2021 03/10/2020 OSTEOPOROSIS SCREENING 2022 INFLUENZA VACCINE (#1) 2025 RSV VACCINE (60+ or ) (1 - 1-dose 75+ series) 2032 Procedures Procedure Name Priority Date/Time Associated Diagnosis Comments CBC WITH DIFFERENTIAL Routine 04/22/2025 4:57 PM CDT CANCER ANTIGEN 15-3 Routine 04/22/2025 4 :19 PM CDT CANCER ANTIGEN 15-3 Routine 02/25/2025 3 :10 PM CDT COMPREHENSIVE METABOLIC PANEL Routine 02/25/2025 12:58 PM CDT MAMMO SCRN UNI LEFT W OR WO CAD Routine 03/10/2020 Breast cancer screening by mammogram from Last 3 Months or Most Recently Relevant to Health Maintenance Results * CBC WITH DIFFERENTIAL (04/22/2025 4:57 PM CDT) Blood us Adan Pratt MD HEMATOLOGY ORDERABLES Final Res ult * CANCER ANTIGEN 15-3 (04/22/2025 4:19 PM CDT) Only the most recent of2 resultswithin the time period is included. Blood us Adan Pratt MD CHEMISTRY ORDERABLES Final Resu lt * COMPREHENSIVE METABOLIC PANEL (02/25/2025 12:58 PM CDT) Blood us Adan Pratt MD CHEMISTRY ORDERABLES Final Resu lt * MAMMO SCRN UNI LEFT W OR WO CAD (03/10/2020) Anatomical Region Laterality Modality Breast Left Mammography us Adan Pratt MD MAMMO ORDERABLES Final Result from Last 3 Months or Most Recently Relevant to Health [place] [address] MEDICARE PART A AND B [facility] Care Teams Plastics Technician Relationship Specialty Start Date End Date Fan Ledezma MD [address] [facility] [address] [place] [address] PCP - General Family Practice 02/27/20
--- OUTSIDE RECORDS SUMMARY | 2025-04-24 09:11 | XMS_ITS | Encounter Summary ---
Author Organization [facility] [employer] [facility] Address [address] [place] [address] Care Team Providers Care Weapons Engineer Name Role Phone Fan Ledezma MD Primary Care Provider [phone] Encounter Details Date Type Department Care Team (Late Contact Info) Description 04/23/2025 Orders Only [facility] Oncology and Hematology [facility] [address] [place] [phone] Adan Pratt MD [facility] [address] [place] [address] Social History Tobacco Use Types Packs/Day Years Used Date Smoking Tobacco: Never Smokeless Tobacco: Never Alcohol Use Standard Drinks/Week Comments Never 0 (1 standard drink = 0.6 oz pur e alcohol) Comments No Sex and Gender Information Value Date Recorded Sex Assigned at Not on file Legal Sex Female 3:10 PM CDT Gender Identity Not on file Sexual Orientation Not on file documented as of this encounter Plan of Treatment Upcoming Encounters Date Type Department Care Team (Late Contact Info) Description 05/01/2025 9:00 AM CDT Office Visit [facility] Oncology and Hematology [facility] [address] [place] [address] Adan Pratt MD [facility] [address] [place] [address] documented as of this encounter Procedures Procedure Name Priority Date/Time Associated Diagnosis Comments CBC WITH DIFFERENTIAL Routine 04/22/2025 4:57 PM CDT CANCER ANTIGEN 15-3 Routine 04/22/2025 4:19 PM CDT documented in this encounter Results * CBC WITH DIFFERENTIAL (04/22/2025 4:57 PM CDT) Blood us Adan Pratt MD HEMATOLOGY ORDERABLES Final Res ult * CANCER ANTIGEN 15-3 (04/22/2025 4:19 PM CDT) Blood us Adan Pratt MD CHEMISTRY ORDERABLES Final Resu lt documented in this encounter Visit Diagnoses Not on filedocumented in this encounter Care Teams Weapons Engineer Relationship Specialty Start Date End Date Fan Ledezma MD [address] [facility] [address] [place] [address] PCP - General Family Practice 02/27/20 documented as of this encounter
== END 2025-04-24 09:08 | disposition home or self-care (01) ==
PROVIDERS: PCP Family Medicine; Visit Provider Internal Medicine Hematology & Oncology
DX: C50.411 Malignant neoplasm of upper-outer quadrant of right female breast (principal); Z17.0 Estrogen receptor positive status [ER+]
CPT/HCPCS: 71250; 78306; A9503

== ENCOUNTER 2025-07-15 09:24 | Outpatient (CLI) | payer MEDICARE, OTHER, SELFPAY ==
--- NOTE | ~2025-07-15 | CT_ITS ---
CT diagnostic chest wo con HISTORY:mal tran of upper outer quad of rt breast in female COMPARISON: None. TECHNIQUE: Axial images of the chest were obtained without infusion of intravenous contrast. Dose optimization technique was utilized. FINDINGS: The examination demonstrates no pulmonary nodules, infiltrates and/or effusions. Right upper lung opacity may be post radiation changes. Cardiac size and mediastinal configuration are normal in appearance. No hilar or mediastinal lymphadenopathy is seen. The thoracic aorta is normal in caliber. Osseous structures are intact. IMPRESSION: No acute cardiopulmonary process. All CT scans at this facility are performed using low dose modulation techniques as appropriate to perform exam including the following: automated exposure control; use of iterative reconstruction technique; adjustment of the mA and/or kV according to patient size (this includes techniques or standardized protocols for targeted exams where dose is matched to indication/reason for exam). Reviewed, dictated and finalized at location S. IMPRESSION: No acute cardiopulmonary process. All CT scans at this facility are performed using low dose modulation techniqu es as appropriate to perform exam including the following: automated exposure c ontrol; use of iterative reconstruction technique; adjustment of the mA and/or kV according to patient size (this includes techniques or standardized protocol s for targeted exams where dose is matched to indication/reason for exam).
--- OUTSIDE RECORDS SUMMARY | 2025-07-15 10:32 | XMS_ITS | Encounter Summary ---
Author Organization [facility] [employer] [facility] Address [address] [place] [address] Care Team Providers Care Brand Director Name Role Phone Fan Ledezma MD Primary Care Provider [phone] Encounter Details Date Type Department Care Team (Late Contact Info) Description 07/14/2025 Orders Only [facility] Oncology and Hematology [facility] [address] [place] [phone] Adan Pratt MD [facility] [address] [place] [address] Social History Tobacco Use Types Packs/Day [...] Care Team (Late st Contact Info) Description 07/24/2025 8:30 AM CDT Office Visit [facility] Oncology and Hematology [place] [address] [place] [address] Adan Pratt MD [address] [place] [address] documented as of this encounter Procedures Procedure Name Priority Date/Time Associated Diagnosis Comments CBC WITH AUTODIFFERENTIAL Routine 2024 1:44 PM CDT documented in this encounter Results * CBC WITH AUTODIFFERENTIAL (07/14/2025 1:44 PM CDT) Blood us Adan Pratt MD HEMATOLOGY ORDERABLES Final Res ult documented in this encounter Visit Diagnoses Not on filedocumented in this encounter Care Teams Brand Director Relationship Specialty Start Date End Date Fan Ledezma MD [address] [facility] [address] [place] [address] PCP - General Family Practice 02/27/20 documented as of this encounter
--- OUTSIDE RECORDS SUMMARY | 2025-07-15 10:32 | XMS_ITS | Encounter Summary ---
Author Organization [facility] Address [address] [place] [address] Care Team Providers Care Senior Electrical Engineer Name Role Phone Fan Ledezma MD Primary Care Provider [phone] Encounter Details Date Type Department Care Team (Late Contact Info) Description 03/04/2020 Chart Note [facility] Radiation Therapy [address] [place] [address] [place] [address] [place] [address] Social History Tobacco Use Types [...] Description 07/24/2025 8:30 AM CDT Office Visit [facility] Oncology and Hematology - [place] [address] [facility] [address] [place] [address] Adan Pratt MD [address] [facility] [address] [place] [address] documented as of this encounter Visit Diagnoses Not on filedocumented in this encounter Care Teams Senior Electrical Engineer Relationship Specialty Start Date End Date Fan Ledezma MD [address] [facility] [address] [place] [address] PCP - General Family Practice 02/27/20 documented as of this encounter
--- OUTSIDE RECORDS SUMMARY | 2025-07-15 10:32 | XMS_ITS | Encounter Summary ---
Author Organization [facility] [employer] [facility] Address [address] [place] [address] Care Team Providers Care Sleeve Separator Name Role Phone Fan Ledezma MD Primary Care Provider [phone] Encounter Details Date Type Department Care Team (Late Contact Info) Description 07/15/2025 Orders Only [facility] Oncology and Hematology [facility] [address] [place] [phone] Adan Pratt MD [address] [employer] [address] [place] [phone] Social History Tobacco Use Types Packs/Day [...] Description 07/24/2025 8:30 AM CDT Office Visit [facility] Oncology and Hematology [place] [address] [place] [address] Adan Pratt MD [address] [place] [phone] documented as of this encounter Procedures Procedure Name Priority Date/Time Associated Diagnosis Comments COMPREHENSIVE METABOLIC PANEL Routine 07/14/2025 7:58 AM CDT documented in this encounter Results * COMPREHENSIVE METABOLIC PANEL (07/14/2025 7:58 AM CDT) Blood Adan Pratt MD CHEMISTRY ORDERABLES Final Resu lt documented in this encounter Visit Diagnoses Not on filedocumented in this encounter Care Teams Sleeve Separator Relationship Specialty Start Date End Date Fan Ledezma MD [address] [facility] [address] [place] [address] PCP - General Family Practice 02/27/20 documented as of this encounter
--- OUTSIDE RECORDS SUMMARY | 2025-07-15 10:32 | XMS_ITS | Clinical Summary ---
Author Organization [facility] Address [address] [place] [address] Care Team Providers Care Supervisor [employer] Name Role Phone Fan Ledezma MD Primary Care Provider [phone] Allergies Active Allergy Reactions Criticality Noted Date [...] of breast metastatic to bone, unspecified laterality Take 650 mg by mouth every 12 hours. 60 Tablet 5 2 Active Additional Information Patient taking differently:650 mg OralDAILY, Takes every other day currently, Reported on 04/08/2024 palbociclib (Ibrance) 75 mg tabletIndication s:Malignant neoplasm of upper-outer quadrant of right breast in female, estrogen receptor positive (CMS/HCC),Carcin jorge l of breast metastatic to bone, unspecified laterality TAKE 1 TABLET BY MOUTH 1 TIME A DAY ON DAYS 1 TO 21 OF A 28 DAY CYCLE 21 Tablet 4 5 Active anastrozole (ARIMIDEX) 1 mg tablet TAKE 1 TABLET BY MOUTH EVERY DAY 90 Tablet 3 5 Active cholecalciferol 1,250 mcg (50,000 unit) CapsuleIndicatio ns:Malignant neoplasm of upper-outer quadrant of right breast in female, estrogen receptor positive (CMS/HCC) TAKE 1 CAPSULE (50,000 UNITS) BY MOUTH EVERY 7 DAYS 12 Capsule 3 Active Active Problems Problem Noted Date Diagnosed Date Breast cancer metastasized to bone 07/10/2020 Breast cancer metastasized to lung 07/10/2020 Malignant neoplasm of upper- outer quadrant of right breast in female, estrogen receptor positive 03/17/2020 Encounters Date Type Department Care Team Description 07/15/2025 Orders Only [facility] Oncology and Hematology - [place] [address] Adan Pratt MD 07/14/2025 Orders Only [facility] Oncology and Hematology - [place] [address] [place] [phone] Adan Pratt MD 06/25/2025 Orders Only [facility] Oncology and Hematology - [place] [address] [place] [phone] Adan Pratt MD 06/17/2025 External Device Data ST[facility] ABSTRACTION Provider, Abstract 06/04/2025 External Device Data [facility] ABSTRACTION Provider, Abstract 05/13/2025 External Device Data [facility] ABSTRACTION Provider, Abstract 05/11/2025 Refill [facility] Oncology and Hematology - [place] [address] [place] [phone] Adan Pratt MD Malignant neoplasm of upper-outer quadrant of right breast in female, estrogen receptor positive (CMS/HCC) 05/10/2025 Refill [facility] Oncology and Hematology - [place] [address] [place] [address] Adan Pratt MD 05/02/2025 Telephone [facility] Oncology and Hematology - [place] [address] [place] [address] results 05/01/2025 9:00 AM CDT Office Visit [facility] Oncology and Hematology - [place] [address] [place] [address] Adan Pratt MD Malignant neoplasm of upper-outer quadrant of right breast in female, estrogen receptor positive (CMS/HCC) (Primary Dx) 05/01/2025 Orders Only [facility] Oncology and Hematology - [place] [address] [place] [address] Adan Pratt MD 04/28/2025 Orders Only [facility] Oncology and Hematology - [place] [address] [place] [address] Adan Pratt MD 04/23/2025 Orders Only [facility] Oncology and Hematology - [place] [address] [place] [address] Adan Pratt MD 04/16/2025 External Device Data STL ABSTRACTION Provider, Abstract from Last 3 Months Family History Medical [...] Sign Reading Time Taken Comments Blood Pressure 112/78 05/01/2025 8:51 AM CDT Pulse 68 05/01/2025 8:51 AM CDT Temperature 36.1 C (96.9 F) 05/01/2025 8:51 AM CDT Respiratory Rate 15 05/01/2025 8:51 AM CDT Oxygen Saturation 90% 05/01/2025 8:51 AM CDT Inhaled Oxygen Concentration - - Weight 76.7 kg (169 lb) 03/10/2023 8:31 AM CDT Height 149.9 cm (4' 11) 04/08/2022 8:49 AM CDT Body Mass Index 34.13 04/08/2022 8:49 AM CDT Plan of Treatment Upcoming Encounters Date Type Department Care Team (Late st Contact Info) Description 07/24/2025 8:30 AM CDT Office Visit [facility] Oncology and Hematology [facility] [address] [place] [address] Adan Pratt MD [address] [facility] [address] [place] [address] Health Maintenance Due Date Last Done Comments DTAP/TDAP/TD VACCINES (1 - Tdap) 1974 PNEUMOCOCCAL VACCINE 50+ YEARS (1 of 2 - PCV) 06/05/19 76 Traditional Medicare (ACO) Annual Wellness Visit 06/05 ZOSTER VACCINE (1 [...] WITH AUTODIFFERENTIAL Routine 2024 1:44 PM CDT COMPREHENSIVE METABOLIC PANEL Routine 07/14/2025 7:58 AM CDT COMPREHENSIVE METABOLIC PANEL Routine 06/23/2025 11:[address] CHEST W CONTRAST Routine 04/24/2025 1 0:44 AM CDT NM BONE SCAN WHOLE BODY Routine 04/24/20 25 8:41 AM CDT CBC WITH DIFFERENTIAL Routine 04/22/2025 4:57 PM CDT CANCER ANTIGEN 15-3 Routine 04/22/2025 4 :19 PM CDT MAMMO SCRN UNI LEFT W OR WO CAD Routine 03/10/2020 Breast cancer screening by mammogram from Last 3 Months or Most Recently Relevant to Health Maintenance Results * CBC WITH AUTODIFFERENTIAL (07/14/2025 1:44 PM CDT) Blood us Adan Pratt MD HEMATOLOGY ORDERABLES Final Res ult * COMPREHENSIVE METABOLIC PANEL (07/14/2025 7:58 AM CDT) Only the most recent of2 resultswithin the time period is included. Blood us Adan Pratt MD CHEMISTRY ORDERABLES Final Resu lt * CT CHEST W CONTRAST (04/24/2025 10:44 AM CDT) Anatomical Region Laterality Modality Chest Computed Tomogra phy us Adan Pratt MD CT ORDERABLES Final Result * NM BONE SCAN WHOLE BODY (04/24/2025 8:41 AM CDT) Anatomical Region Laterality Modality Nuclear Medicine Result Hyun Pratt MD NM ORDERABLES Final Result * CBC WITH DIFFERENTIAL (04/22/2025 4:57 PM CDT) Blood Result Hyun Pratt MD HEMATOLOGY ORDERABLES Final Res ult * CANCER ANTIGEN 15-3 (04/22/2025 4:19 PM CDT) Blood Result Hyun Pratt MD CHEMISTRY ORDERABLES Final Resu lt * MAMMO SCRN UNI LEFT W OR WO CAD (03/10/2020) Anatomical Region Laterality Modality Breast Left Mammography Result Hyun Pratt MD MAMMO ORDERABLES Final Result from Last 3 Months or Most Recently Relevant to Health Maintenance Insurance MEDICARE PART A AND B [employer] [facility] [place] [id number] Care Teams Supervisor Al[employer] Relationship Specialty Start Date End Date Fan Ledezma MD [address] [facility] [address] [place] [phone] PCP - General Family Practice 02/27/20
== END 2025-07-15 09:25 | disposition home or self-care (01) ==
PROVIDERS: PCP Family Medicine; Visit Provider Internal Medicine Hematology & Oncology
DX: C50.411 Malignant neoplasm of upper-outer quadrant of right female breast (principal); Z17.0 Estrogen receptor positive status [ER+]
CPT/HCPCS: 71250